=== PATIENT | male | born 1995 | race Caucasian/White ===

== ENCOUNTER 2017-12-18 12:05 | Day surgery (SDC) | payer OTHER ==
[2017-12-07 08:44] LABS: HEMATOCRIT 45.2 % (37.9-51.0); HEMOGLOBIN 15.7 g/dL (13.5-17.0); MEAN CORPUSCULAR HEMOGLOBIN 29.7 pg (27.0-33.4); MEAN CORPUSCULAR HGB CONC 34.7 g/dL (32.0-36.0); MEAN CORPUSCULAR VOLUME 86 fl (80-97); PLATELET COUNT 238 10^3/uL (150-450); RED BLOOD COUNT 5.29 10^6/uL (4.35-5.55); RED CELL DISTRIBUTION WIDTH 13.5 % (11.5-14.0); WHITE BLOOD COUNT 6.2 10^3/uL (4.0-10.5)
[2017-12-07 09:13] LABS: ANION GAP 12 (5-19); BLOOD UREA NITROGEN 11 mg/dL (7-20); CALCIUM 9.8 mg/dL (8.4-10.2); CARBON DIOXIDE 29 mmol/L (22-30); CHLORIDE 103 mmol/L (98-107); GLUCOSE 82 mg/dL (75-110); POTASSIUM 4.2 mmol/L (3.6-5.0); SODIUM 144.2 mmol/L (137-145)
[2017-12-07 09:45] LABS: APPEARANCE,URINE SLIGHTLY-CLOUDY; BILIRUBIN,URINE NEGATIVE (NEGATIVE); COLOR,URINE YELLOW; GLUCOSE, URINE NEGATIVE (NEGATIVE); KETONES,URINE NEGATIVE (NEGATIVE); LEUKOCYTE ESTERASE,URINE NEGATIVE (NEGATIVE); NITRITE,URINE NEGATIVE (NEGATIVE); PROTEIN,URINE NEGATIVE (NEGATIVE); URINE SPECIFIC GRAVITY 1.023
--- NOTE | 2017-12-07 12:39 | EKG REPORT ---
SEVERITY:- BORDERLINE ECG - SINUS RHYTHM ST ELEV, PROBABLE NORMAL EARLY REPOL PATTERN : Confirmed by: Radha Parra MD 07-Dec-2017 12:38:39
[~2017-12-18 12:05] MED LIST: CEFAZOLIN 2 GM/D5W RTU 2 GM/50 ML RTUPB IV PRN; KETOROLAC TROMETHAMINE 60 MG/2 ML SDV ONE; LACTATED RINGERS 1000 ML IV PRN; SUCCINYLCHOLINE CHLORIDE INJ 200 MG/10 ML VIAL ONE
[2017-12-18] MEDS ORDERED: BUPIVACAINE HCL 0.5 % INJ/PF 30 ML SDV ONE (12:11)
[2017-12-18] MEDS ORDERED: ALBUTEROL SULFATE 0.083% NEB 2.5 MG/3 ML AMPUL NEB ONE (13:18)
[2017-12-18] MEDS ORDERED: CEFAZOLIN 2 GM/D5W RTU 2 GM/50 ML RTUPB IV ONE (13:42)
[2017-12-18] MEDS ORDERED: RINGERS SOLUTION,LACTATED 1,000 ML IV ONE (14:00)
[2017-12-18] MEDS ORDERED: ONDANSETRON HCL INJ/PF 4 MG/2 ML SDV ONE (14:35)
[2017-12-18] MEDS ORDERED: PROPOFOL INJ 200 MG/20 ML VIAL IV ONE (14:35)
[2017-12-18] MEDS ORDERED: FENTANYL CITRATE INJ/PF 100 MCG/2 ML AMPUL ONE ×2 (14:35→19:41)
[2017-12-18] MEDS ORDERED: MIDAZOLAM 2 MG/2 ML INJ ONE (14:35)
[2017-12-18] MEDS ORDERED: LIDOCAINE 2% INJ-PF (20 MG/ML) 10 ML AMPUL ONE (14:35)
[2017-12-18] MEDS ORDERED: DEXAMETHASONE SOD PHOSPHATE INJ 4 MG/1 ML VIAL ONE (14:35)
[2017-12-18] MEDS ORDERED: ACETAMINOPHEN 1,000 MG/100 ML RTUPB IV ONE (14:36)
[2017-12-18] MEDS ORDERED: ONDANSETRON HCL INJ/PF 4 MG/2 ML SDV IV PRN ×3 (16:10→19:02)
[2017-12-18] MEDS ORDERED: MEPERIDINE HCL/PF INJ 25 MG/1 ML DISP.SYRIN IV PRN ×2 (16:10→17:55)
[2017-12-18] MEDS ORDERED: DIPHENHYDRAMINE HCL 50 MG/ML VIAL IV PRN ×2 (16:10→17:55)
[2017-12-18] MEDS ORDERED: FENTANYL CITRATE INJ/PF 100 MCG/2 ML AMPUL IV PRN ×6 (16:10→17:55)
[2017-12-18] MEDS ORDERED: MORPHINE SULFATE 10 MG/ML INJ IV PRN ×2 (16:10→17:55)
[2017-12-18] MEDS ORDERED: PROMETHAZINE HCL INJ 25 MG/1 ML VIAL IV PRN ×4 (16:10→17:55)
[2017-12-18] MEDS ORDERED: OXYCODONE-ACETAMINOPHEN 5-325 MG TABLET PO PRN (19:02)
[2017-12-18] MEDS ORDERED: HYDROMORPHONE HCL INJ/PF 2 MG/ML AMPULE IV PRN (19:02)
--- NOTE | 2017-12-18 19:03 | Discharge Summary ---
Discharge Summary (SDC) - Discharge Final Diagnosis: Left wrist DRUJ instability, TFCC tear Date of Surgery: 12/18/17 Discharge Date: 12/18/17 Condition: Good Treatment or Instructions: Schedule Follow Up w/ Dr. Nelson Harrison @ [facility] to be seen in 10-14 days or as scheduled [place]: [place]: [place]: Ice and elevate Keep splint clean/dry/intact. If your fingers become numb please unwrap the Gilberto wrap but leave the splint in place, if the sensation does not return within 30 minutes please return to the emergency department. May begin finger range of motion attempting to make full fist. Please use ibuprofen (Motrin or Advil) 600-800 mg every 8 hours as needed for pain or fever DO NOT TAKE w/ TORADOL may use once TORADOL complete. You may also use acetaminophen (Tylenol) 1000 mg every 4-6 hours as needed for pain or fever. Please be aware that many medications contain acetaminophen, do not exceed a total of 1000 mg of acetaminophen every 6 hours. If ibuprofen and acetaminophen are not sufficient for your pain you may take the Percocet/Als[place]. Please be aware that the Percocet/Alsip does contain Tylenol. Stool softener of choice when on pain medication. Prescriptions: Ketorolac Tromethamine [Toradol 10 mg Tablet] 10 mg PO Q8 PRN #12 tablet PRN Reason: Oxycodone HCl/Acetaminophen [Percocet 5-325 mg Tablet] 1 tab PO Q6 #25 tab Referrals: TAMIR MARTINI PA-C [Primary Care Provider] - Discharge Diet: As Tolerated Respiratory Treatments at Home: Deep Breathing/Coughing Discharge Activity: No Lifting Over 10 Pounds, No Lifting/Push/Pulling Report the Following to Your Physician Immediately: Fever over 101 Degrees, Unusual Bleeding, Redness, Swelling, Warmth, Increased Soreness
--- NOTE | 2017-12-18 19:13 | Operative Report ---
Operative Report DATE OF SURGERY: 12/18/17 PREOPERATIVE DIAGNOSIS: Left wrist TFCC tear, DRUJ instability, ulnar impingement POSTOPERATIVE DIAGNOSIS: Same OPERATION: 1. Left wrist arthroscopy with open TFCC repair. 2. Ulnar shortening osteotomy SURGEON: POLLY TRENT ANESTHESIA: GA COMPLICATIONS: None ESTIMATED BLOOD LOSS: Minimal PROCEDURE: Indication for above procedure: 22-year-old male who sustained a injury to his left wrist. Patient was treated conservatively including immobilization therapy and injections without resolution of his symptoms. Ultimately had MRI which demonstrated TFCC tear. On examination we discussed findings along with treatment options. Risks and benefits of operative option including wrist arthroscopy with ulnar shortening osteotomy with the possibility of DRUJ reconstruction if he continues to have persistent DRUJ instability in the future after discussing his options decision was made to proceed with wrist arthroscopy with possible TFCC repair, ulnar shortening osteotomy. Risks and benefits were explained patient verbalized understanding consented for the procedure. Procedure In Detail: Patient was seen and evaluated in the preoperative holding area. The LEFT upper extremity was initialized and marked. Patient received 2g of Ancef IV for bacterial prophylaxis. Patient was taken back to the operative room where transferred to the operative table and placed under general anesthesia. Once they were adequately anesthetized a nonsterile tourniquet was placed on the upper extremity. A surgical team debriefing was performed ensuring all instrumentation was available, the surgical procedure was discussed with possible concerns reviewed. The upper extremity was prepped with chlorhexidine and alcohol and draped in a sterile fashion. A timeout was done identifying correct patient, procedure and extremity everyone in attendance agree with this and verbalized no concerns. The extremity was exsanguinated the tourniquet was inflated to 250 mmHg. 3-4 portal was established. Dry arthroscopy was performed via translation of 4- 5 portal was established. Dry arthroscopy demonstrated full-thickness peripheral tear of the TFCC there is also an associated partial LT tear. Arthroscopic shaver was introduced and a partial synovectomy was performed. No evidence of scapholunate ligament disruption. No evidence of degenerative changes. A midcarpal radial and ulnar portal was established demonstrating Kristyn III LT tear. No evidence of SL step-off. No evidence of midcarpal degenerative changes. Given the amount of patient's DRUJ instability decision was made to proceed with open TFCC repair with concomitant ulnar shortening osteotomy due to patient's DRUJ instability and LT disruption. Longitudinal skin incision was made along the ulnar border of the ulnar shaft. Blunt dissection performed branches of the dorsal ulnar sensory branch were identified and retracted. The interval between the FCU/CC was established superior periosteal dissection was performed to expose the ulnar shaft. The Acumed ulnar shortening osteotomy plate was secured C-arm fluoroscopy was obtained confirming appropriate placement. Preoperative templating determined 4 mm of ulnar shortening would be optimal. The plate was then secured distally with bicortical fixation. A PEG was placed within the dynamic hole proximally. The osteotomy guide was placed and cut. It was then shifted to 4 mm as noted per preoperative templating. During osteotomy irrigation was performed to avoid necrosis. Once completed the plate was loosened and moved to ensure no intervening bone. I then secured the plate once again distally. The peg was loosened and the osteotomy shortened and secured with a lobster claw. C-arm fluoroscopy was obtained to confirm adequate shortening. Once confirmed screw hole was placed proximally. Via interfragmentary compression by technique a compression screw was placed across the osteotomy site. Fixation was then completed with a locking screw distally and proximally respectively obtaining adequate fixation. Neutral, pronation supination radiographs were performed confirming adequate shortening. After shortening there was improved stability of the DRUJ residual laxity and thus proceeded with TFCC repair. Ulnar to the ECU soft tissue was elevated including the sub-sheath to expose the TFCC. Once the TFCC was exposed a 2-0 FiberWire suture was placed in a horizontal mattress fashion 1 limb placed anterior and 1 limb placed posterior to the ulnar styloid. This was then loaded on a push lock anchor. This was drilled and tensioned. After TFCC repair was complete patient had good stability throughout pronation, neutral and supination. The layers were then closed with interrupted 2-0 Vicryl suture including the ECU sub-sheath and retinaculum. Final C-arm fluoroscopy demonstrated adequate ulnar shortening osteotomy with compression of the osteotomy site. Tourniquet was deflated any peripheral bleeding was controlled with bipolar cautery. The 3-4 portal demonstrated venous bleeding it was then extended to the midcarpal radial portal to established hemostasis. Once controlled all wounds were irrigated with normal saline. ECU/FCU interval was closed with interrupted 2-0 Vicryl suture. Subcutaneous tissues were closed with 3-0 Vicryl and 4-0 Monocryl suture. Skin was closed with running horizontal mattress 3-0 nylon. Portal holes were closed with interrupted 4-0 nylon suture. 30 cc of 0.5% Marcaine without epinephrine was injected for postoperative pain control. Sponge counts, instrument counts, needle counts counts were correct. Patient was then awoken from anesthesia. Transferred from the operating room table to the operating room stretcher. There was no intraoperative complications patient tolerated procedure well stable to PACU. Postoperative plan: Patient will follow-up the office in 2 weeks will obtain radiographs. Patient will be transition to a long-arm cast which he will continue for 6 weeks postoperatively. At 6 weeks postoperatively patient will be set up for occupational therapy and fitted for a Kathleen splint and begin range of motion exercises for additional 2 weeks and then transition to a wrist brace for 8 weeks postoperatively with strengthening beginning if patient achieved full range of motion. Anticipate return to play/full duty 6 months postoperatively
[2017-12-18] MEDS ORDERED: PROMETHAZINE HCL INJ 25 MG/1 ML VIAL ONE (19:37)
--- NOTE | 2017-12-18 20:25 | RADIOLOGY REPORT (SQ) ---
EXAM DESCRIPTION: NO CHG FLUORO; WRIST LEFT 3 VIEWS COMPLETED DATE/TIME: 12/18/2017 7:18 pm REASON FOR STUDY: ORIF LT WRIST COMPARISON: None. FLUOROSCOPY TIME: 48 seconds 4 Images saved to PACS LIMITATIONS: None. PROCEDURE: ORIF ulnar fracture. FINDINGS: Images obtained from fluoro document placement of a compression plate on the distal ulna w ith multiple screws. IMPRESSION: ORIF ulnar fracture. Refer to operative note for further information. COMMENT: PQRS 6045F: Fluoroscopy time of the procedure is documented in the report. TECHNICAL DOCUMENTATION: JOB ID: [id number] [employer]- All Rights Reserved Reading location - IP/workstation name: [email or web address]
--- NOTE | 2017-12-18 20:25 | RADIOLOGY REPORT (SQ) ---
EXAM DESCRIPTION: NO CHG FLUORO; WRIST LEFT 3 VIEWS COMPLETED DATE/TIME: 12/18/2017 7:18 pm REASON FOR STUDY: ORIF LT WRIST COMPARISON: None. FLUOROSCOPY TIME: 48 seconds 4 Images saved to PACS LIMITATIONS: None. PROCEDURE: ORIF ulnar fracture. FINDINGS: Images obtained from fluoro document placement of a compression plate on the distal ulna w ith multiple screws. IMPRESSION: ORIF ulnar fracture. Refer to operative note for further information. COMMENT: PQRS 6045F: Fluoroscopy time of the procedure is documented in the report. TECHNICAL DOCUMENTATION: JOB ID: [id number] [employer]- All Rights Reserved Reading location - IP/workstation name: [email or web address]
[2017-12-18 21:34] VITALS: BP 143/77
== END 2017-12-18 23:18 | disposition home or self-care (01) ==
LOC: OROUT 12:05 → 2S 20:59 → OROUT 23:18
PROVIDERS: ATTEND Orthopaedic Surgery
DX: S63.512A Sprain of carpal joint of left wrist, initial encounter (principal); M25.332 Other instability, left wrist; M25.832 Other specified joint disorders, left wrist; M19.232 Secondary osteoarthritis, left wrist; S69.92XA Unspecified injury of left wrist, hand and finger(s), initial encounter; S63.01 Subluxation and dislocation of distal radioulnar joint; V19.9XXA Pedal cyclist (driver) (passenger) injured in unspecified traffic accident, initial encounter; F17.210 Nicotine dependence, cigarettes, uncomplicated
CPT/HCPCS: 93005; 36415; 85027; 80048; 81001; 73110; 93010; 25390; 25320; C1713 ×6; C1769; J2250; J3490 ×2; J1100; J1885; J3010; J1170; J2550; J0330; J2405; J2704; J0690; J0131; 01830